=== PATIENT | female | born 1970 | race Caucasian/White ===

== ENCOUNTER 2019-09-02 07:54 | Outpatient (CLI) | payer BC, SELFPAY ==
--- NOTE | ~2019-09-02 | MR_ITS ---
EXAMINATION: MR ankle LT wo con DATE: 09/02/2019 09:25 INDICATION: Chronic left heel pain TECHNIQUE: Magnetic resonance imaging (MRI) of the left ankle was performed without intravenous contr ast. Sequences included sagittal, coronal, and axial proton-density weighted fast spin echo without a nd with fat saturation. COMPARISON: None. FINDINGS: Medial ankle ligaments: Deep and superficial deltoid ligaments as well as the spring ligament are normal. Lateral ankle ligaments: The anterior and posterior inferior tibiofibular ligaments are normal. The anterior talofibular, calc aneofibular and posterior talofibular ligaments are normal. Tendons: Achilles tendon is normal. The peroneus longus and brevis tendons are normal. The tibialis anterior a nd extensor hallucis longus and extensor digitorum longus tendons are normal. The tibialis posterior, flexor digitorum longus and flexor hallucis longus tendons are normal. Plantar fascia: Tiny plantar calcaneal spur. Mild thickening with minimal increased signal at the proximal aspect of the central component of the plantar aponeurosis. No significant associated bone or surrounding soft tissue edema to suggest acute plantar fasciitis. There is a transverse band of scarring along the ski n surface at the medial plantar aspect of the heel superficial to the proximal aspect of the plantar aponeurosis consistent with history of prior surgery. The plantar aponeurosis appears normal. Bones/other: Bone alignment is normal with normal marrow signal throughout. No fracture, reactive edema or patholo gic marrow replacing process. Joint spaces are normal. No erosions. Intrinsic musculature of the foot is unremarkable. Lisfranc ligament complex is normal. Sinus Tarsi and tarsal tunnel are unremarkable . Fluid: Physiologic amount of fluid in the joint spaces. No tenosynovitis or other abnormal fluid collections . IMPRESSION: 1. Mild chronic enthesopathy at the calcaneal origin of the plantar aponeurosis with adjacent postope rative changes. Correlate with surgical history. Reviewed, dictated and finalized at location A. IMPRESSION: 1. Mild chronic enthesopathy at the calcaneal origin of the plantar aponeurosis with adjacent postoperative changes. Correlate with surgical history.
--- NOTE | ~2019-09-02 | MR_ITS ---
EXAMINATION: MR ankle RT wo con DATE: 09/02/2019 09:25 INDICATION: Chronic inferior right heel pain TECHNIQUE: Magnetic resonance imaging (MRI) of the right ankle and hindfoot was performed without int ravenous contrast. Sequences included sagittal, coronal, and axial proton-density weighted fast spin echo without and with fat saturation. COMPARISON: None. FINDINGS: Medial ankle ligaments: Deep and superficial deltoid ligaments as well as the spring ligament are normal. Lateral ankle ligaments: The anterior and posterior inferior tibiofibular ligaments are normal. The anterior talofibular, calc aneofibular and posterior talofibular ligaments are normal. Tendons: Achilles tendon is normal. The peroneus longus and brevis tendons are normal. The tibialis anterior a nd extensor hallucis longus and extensor digitorum longus tendons are normal. The tibialis posterior, flexor digitorum longus and flexor hallucis longus tendons are normal. Plantar fascia: Small plantar calcaneal spur. There is mild thickening and increased signal at the proximal aspect of the central component of the plantar aponeurosis. There is minimal associated marrow and soft tissue edema consistent with mild plantar fasciitis. Bones/other: Bone alignment is normal. Normal marrow signal with no fracture, reactive edema or pathologic marrow replacing process. Joint spaces are normal. Lisfranc ligament is normal. Sinus Tarsi and tarsal tunne l are unremarkable. Fluid: Physiologic amount fluid in the joint space. No tenosynovitis or other abnormal fluid collections. IMPRESSION: 1. Mild acute on chronic plantar fasciitis. Reviewed, dictated and finalized at location A.
== END 2019-09-02 07:55 | disposition home or self-care (01) ==
PROVIDERS: PCP Emergency Medicine; Visit Provider Podiatrist Foot & Ankle Surgery
DX: M79.671 Pain in right foot (principal); M79.672 Pain in left foot; M72.2 Plantar fascial fibromatosis
CPT/HCPCS: 73721

== ENCOUNTER 2021-01-12 01:14 | Day surgery (SDC) | payer BC, SELFPAY ==
[2020-12-25 14:15] VITALS: BMI 29.2
[2021-01-12 09:38] VITALS: BP 118/61; PULSE 92; RESP 16; TEMP 35.7; O2SAT 99; BMI 31.4
[2021-01-12] MEDS: LACTATED RINGERS 1,000 ML 150 ML IV CONT (09:55)
--- NOTE | 2021-01-12 09:55 | P.PNAN_ITS ---
Anes - Initial Pre Proc Eval Procedure: Operation Date: 01/12/21 10:30 Proposed Procedures p Screening Colonoscopy - Quentin Ontiveros MD Date/Time: 01/12/21 09:55 Surgeon: Quentin Ontiveros MD Pre Op Diagnosis: hx of colon polyps Patient Data Age: 50 Gender: F Height: 1.6 m Weight: 80.5 kg Last Vital Signs Temp 96.2 F L 01/12/21 09:38 Pulse 92 01/12/21 09:38 Resp 16 01/12/21 09:38 BP 118/61 01/12/21 09:38 Pulse Ox 99 01/12/21 09:38 Allergies Allergy/AdvReac Type Severity Reaction Status Date / Time cefdinir Allergy Unknown Unknown Verified 01/12/21 09:33 clindamycin Allergy Unknown Unknown Verified 01/12/21 09:33 nitrofurantoin Allergy Unknown DIARRHEA Verified 01/12/21 09:33 egg AdvReac Severe SEVERE GI Verified 01/12/21 09:33 UPSET N/V/D steroids AdvReac Uncoded 01/12/21 09:33 Home Medications Medication Instructions Recorded Confirmed Type No Home Medications 12/25/20 01/12/21 History Patient hx anesthesia problems: none Family hx anesthesia problems: none Results Review: All pre-operative results and documents have been reviewed as part of the pre-operative evaluation. [facility] Family History Family History (Updated 11/18/13 @ 07:13 by DOCTOR UNKNOWN) Sibling Hypertension Father Carcinoma of colon Other Diabetes mellitus Family history of cardiovascular disease Social History Social History Smoking packs per day: 0.75 Smoking cigarettes per day: 15.0 Years smoked: 20 Smoking pack-years: 15.00 Smoking status: Current every day smoker Tobacco type: cigarettes and e-cigarettes/vaping Additional smoking assessment comments: quit cigarettes 2014; vapes daily Alcohol intake: current Alcohol use details: occasional Substance use: never Substance use type: does not use Living arrangements: with family Additional living arrangements comments: lives with spouse Spiritual care concerns: No Anes - Eval Final PreProcedure Day of Procedure 01/12/21 09:55 Patient weight: obese Heart: regular rate and rhythm Lungs: clear to auscultation Airway: Mallampati scale class II Neurological: alert and oriented Last oral intake: >/= 8 hours ASA classification: II Emergent: no Anesthetic plan: proceed Anesthesia type and monitoring: general GIVS and standard monitoring Results Review: All pre-operative results and documents have been reviewed as part of the pre-operative evaluation. Informed Consent: The patient's anesthetic plan and its attendant risks and benefits were discussed with the patient/family/POA. Questions were solicited and answers provided to the satisfaction of the patient/family/POA.
--- NOTE | 2021-01-12 10:01 | PM.HPGS ---
History of Present Illness History of Present Illness Consent: Risks, benefits, and alternatives have been discussed and questions answered. Patient agrees to proceed with procedure. Chief complaint: hx of colon polyps Narrative: Cece Morel is a 50 year old female with both parents had colon cancer, she has been getting colonoscopies every 5 years but last time about 6 years ago. Review of Systems Constitutional: Constitutional: Denies headache(s) and Denies weakness Eyes: Eyes: Denies blurry vision ENT: Reports Normal hearing present, Denies headache(s) and Denies neck pain Cardiovascular: Cardiovascular: Denies chest pain and Denies dyspnea Respiratory: Respiratory: Denies dyspnea Gastrointestinal: Gastrointestinal: Reports no additional gastrointestinal complaints Genitourinary: Genitourinary: Denies dysuria Musculoskeletal: Musculoskeletal: Denies neck pain Integumentary/Breasts: Skin/Breast: Denies dry skin Neurologic: Reports Normal hearing present, Denies headache(s) and Denies weakness Psychiatric: Psychiatric: Denies anxiety Endocrine: Endocrine: Denies change in body appearance Hematologic/Lymphatic: Hematologic/Lymphatic: Denies easy bleeding Allergic/Immunologic: Allergic/Immunologic: Denies urticaria PMFSH Past Medical History Medical History (Updated 01/12/21 @ 10:02 by Quentin Ontiveros MD) Family history of colon cancer Family History Family History (Updated 11/18/13 @ 07:13 by DOCTOR UNKNOWN) Sibling Hypertension Father Carcinoma of colon Other Diabetes mellitus Family history of cardiovascular disease Social History Social History Smoking packs per day: 0.75 Smoking cigarettes per day: 15.0 Years smoked: 20 Smoking pack-years: 15.00 Smoking status: Current every day smoker Tobacco type: cigarettes and e-cigarettes/vaping Additional smoking assessment comments: quit cigarettes 2014; vapes daily Alcohol intake: current Alcohol use details: occasional Substance use: never Substance use type: does not use Living arrangements: with family Additional living arrangements comments: lives with spouse Spiritual care concerns: No Meds Home Medications and Allergies Home Medications Medication Instructions Recorded Confirmed Type No Home Medications 12/25/20 01/12/21 History Allergies Allergy/AdvReac Type Severity Reaction Status Date / Time cefdinir Allergy Unknown Unknown Verified 01/12/21 09:33 clindamycin Allergy Unknown Unknown Verified 01/12/21 09:33 nitrofurantoin Allergy Unknown DIARRHEA Verified 01/12/21 09:33 egg AdvReac Severe SEVERE GI Verified 01/12/21 09:33 UPSET N/V/D steroids AdvReac Uncoded 01/12/21 09:33 Vital Signs Vital Signs - 24 hr 01/12/21 09:38 Temperature 96.2 F L Pulse Rate 92 Respiratory Rate 16 Blood Pressure 118/61 Pulse Oximetry 99 Exam Const: General: comfortable and no acute distress HENMT: General nose exam: Normal nares present Eyes: General: appearance normal, both eyes and all related structures Neck: Neck: no JVD Resp: Auscultation: clear to auscultation bilaterally Cardio: Rate: regular rate Rhythm: regular rhythm GI: Inspection: non-distended GI Palp: Yes Soft to palpation Skin: General skin exam: normal color Neuro: General: gait normal Speech: normal speech Extrem: General: normal to inspection Psych: Mental Status: mental status grossly normal Assessment and Plan Assessment and plan (1) Family history of colon cancer: Code(s): Z80.0 - Family history of malignant neoplasm of digestive organs Status: Acute Assessment and Plan: colonoscopy
[2021-01-12 10:25] VITALS: BP 94/48; PULSE 87; RESP 16; O2SAT 98
[2021-01-12 10:35] VITALS: BP 92/48; PULSE 80; RESP 16; O2SAT 98
[2021-01-12 10:45] VITALS: BP 95/50; PULSE 77; RESP 16; O2SAT 98
== END 2021-01-12 10:53 | disposition home or self-care (01) ==
PROVIDERS: PCP Emergency Medicine; Visit Provider Internal Medicine Gastroenterology
PROC: 0DJD8ZZ Inspection of Lower Intestinal Tract, Via Natural or Artificial Opening Endoscopic (ICD-10-PCS; CPT 45378; principal; 2021-01-12 10:30)
DX: Z12.11 Encounter for screening for malignant neoplasm of colon (principal); Z80.0 Family history of malignant neoplasm of digestive organs; K63.5 Polyp of colon; K64.8 Other hemorrhoids; D12.2 Benign neoplasm of ascending colon; F17.290 Nicotine dependence, other tobacco product, uncomplicated; E66.9 Obesity, unspecified; Z68.31 Body mass index [BMI] 31.0-31.9, adult
CPT/HCPCS: 45380; 88305; J2704; J7120

== ENCOUNTER → 2021-02-08 14:17 | Outpatient (CLI) | payer BC, SELFPAY ==
--- NOTE | ~2021-02-08 | XR_ITS ---
EXAMINATION: XR lumbar spine min 4V DATE: 02/08/2021 15:33 INDICATION: Lumbar spondylosis. TECHNIQUE: 5 views of lumbar spine were obtained. COMPARISON: None. FINDINGS: Bone alignment is normal. Vertebral body heights and intervertebral disc heights are normal . There are endplate osteophytes at L3-L4 and L4-L5. There is facet joint osteoarthritis in lower lum bar spine, severe on the right at L5-S1. IMPRESSION: 1. Mild lumbar spondylosis. Reviewed, dictated and finalized at location A. SOFTWARE TEST ENGINEER IMPRESSION: 1. Mild lumbar spondylosis.
== END ==
DX: M47.816 Spondylosis without myelopathy or radiculopathy, lumbar region (principal); M48.061 Spinal stenosis, lumbar region without neurogenic claudication; M53.3 Sacrococcygeal disorders, not elsewhere classified
CPT/HCPCS: 72110

== ENCOUNTER 2021-09-11 10:43 | Outpatient (CLI) | payer BC, SELFPAY ==
[2021-09-11 11:12] LABS: Basophils Absolute Auto 0.1 K/mm3 (0.0-0.1); Basophils Percent Auto 0.6 % (0.2-1.2); Eosinophils Absolute Auto 0.2 K/mm3 (0-0.3); Eosinophils Percent Auto 2.2 % (0-4.4); Hematocrit 42.9 % (37.0-47.0); Hemoglobin 13.9 g/dL (12.0-15.0); Immature Granulocyte Absolute 0.03 K/mm3 (0.00-0.031); Immature Granulocyte Percent A 0.4 % (0-0.5); Lymphocytes Absolute Auto 1.97 K/mm3 (0.9-3.2); Lymphocytes Percent Auto 24.3 % (18.3-44.2); Mean Corpuscular HGB Conc 32.4 g/dl (32-36); Mean Corpuscular Hemoglobin 29.8 pg (26-34); Mean Corpuscular Volume 92.1 fl (80-100); Mean Platelet Volume 10.2 fl (7.4-10.4); Monocytes Absolute Auto 0.6 K/mm3 (0.1-0.6); Monocytes Percent Auto 6.9 % (2.6-8.5); Neutrophils Absolute Auto 5.3 K/mm3 (1.3-6.7); Neutrophils Percent Auto 65.6 % (45.5-73.1); Platelet Count Result 280 k/mm3 (150-375); Red Blood Count 4.66 M/mm3 (4.2-5.4); Red Cell Distribution Width 12.2 % (11.5-14.5); White Blood Count 8.1 K/mm3 (4.5-10.0)
[2021-09-11 11:24] LABS: Rheumatoid Factor < 8.6 IU/ML (<12)
[2021-09-11 11:31] LABS: CRP 0.8 mg/dL (<1.0)
[2021-09-11 12:46] LABS: Erythrocyte Sedimentation Rate 17 mm/hr (0-20)
[2021-09-16 12:10] LABS: HLA B27 Negative (Negative)
== END 2021-09-11 10:44 | disposition home or self-care (01) ==
LOC: ANHLAB 10:47
PROVIDERS: PCP Emergency Medicine; Visit Provider Podiatrist Foot & Ankle Surgery
DX: M06.9 Rheumatoid arthritis, unspecified (principal); M45.9 Ankylosing spondylitis of unspecified sites in spine; M10.9 Gout, unspecified
CPT/HCPCS: 36415; 84550; 85025; 85652; 86038; 86140; 86430; 86812

== ENCOUNTER → 2022-07-15 13:07 | Outpatient (CLI) | payer BC, SELFPAY ==
--- NOTE | ~2022-07-15 | DEXA_ITS ---
Bone Density Report Name: JENNY BIRMINGHAM Age: 52 Sex: Female Ethnicity: White Date of : 1970 Indication: postmenopausal; screening for osteoporosis; Referring Provider: PAWAN JACKSON Study: Bone densitometry was performed. Exam Date: July 15, 2022 Accession number: [id number] Bone Density: Region BMD T-score Z-score Classification AP Spine (L1-L4) 0.858 -1.7 -0.8 Osteopenia Femoral Neck (Left) 0.803 -0.4 0.5 Normal Total Hip (Left) 0.923 -0.2 0.4 Normal Femoral Neck (Right) 0.706 -1.3 -0.3 Osteopenia Total Hip (Right) 0.861 -0.7 -0.1 Normal Total Hip Mean 0.892 -0.5 0.2 Normal World Health Organization criteria for BMD impression classify patients as: Normal (T-score at or above -1.0), Osteopenia (T-score between -1.0 and -2.5), or Osteoporosis (T-score at or below -2.5). 10-year Fracture Risk(1): Major Osteoporotic Fracture 5.4% Hip Fracture 0.3% Reported Risk Factors: [place] (), Neck BMD=0.706, BMI=31.1 (1) FRAX(R) Version 3.08. Fracture probability calculated for an untreated patient. Fracture probability may be lower if the patient has received treatment. Clinical Information Provided by Patient: Has used the following medications: Calcium Patient maximum height was 63 Menopause Age: 42 Does not regularly consume dairy products Drinks caffeinated beverages Onset of menses at age 12 Number of children 2 Impression: The patient has low bone mass, based on the Total Spine T-score. The patient has an estimated ten-year risk of hip fracture of 0.3% and an estimated ten-year risk of major fracture of 5.4%, based on the WHO FRAX algorithm. Discussion: BONE DENSITY IS LOW AT ONE OR MORE SKELETAL SITES. This patient's lowest T-score is low at one or more skeletal sites. It meets the World Health Organization's (WHO) criteria for ?low bone mass? (T-score between -1.0 and -2.5). The patient's 10-year risk of fracture as calculated by FRAX is less than the threshold where pharmacological therapy is recommended by the National Osteoporosis Foundation (NOF). However, all treatment decisions require clinical judgment and consideration of individual patient factors, including patient preferences, comorbidities, previous drug use, risk factors not captured in the FRAX model (e.g., frailty, falls, vitamin D deficiency, increased bone turnover, interval significant decline in bone density) and possible under or overestimation of fracture risk by FRAX. The patient should follow a healthful lifestyle (good nutrition with adequate calcium and vitamin D, and appropriate weight-bearing exercise). Follow-Up: Consider repeating this study in 2 to 3 years to reassess this patient's status, or sooner if there is some new clinical indication. Reported by: ISAK on 07/15/2022 1:33:00 PM.
--- NOTE | ~2022-07-15 | MM_ITS ---
EXAMINATION: MM screening sylvie BI [facility] HISTORY: Screening mammogram TECHNIQUE: Craniocaudal and mediolateral oblique 3-D tomosynthesis images were obtained and synthetic 2-D images were generated. CAD analysis was submitted and interpreted. COMPARISON: 11/18/2014 bilateral screening mammogram BREAST PARENCHYMAL COMPOSITION: There are scattered areas of fibroglandular density. FINDINGS: There is no evidence of suspicious mass, calcification, or architectural distortion to sugg est malignancy in either breast. There has been no suspicious interval change. IMPRESSION: 1. No mammographic evidence of malignancy. 2. Recommend routine screening mammography in one year. BI-RADS Category 1: Negative Reviewed, dictated and finalized at location A.
== END ==
PROVIDERS: PCP Emergency Medicine; Visit Provider Emergency Medicine
DX: Z12.31 Encounter for screening mammogram for malignant neoplasm of breast (principal); Z78.0 Asymptomatic menopausal state; M85.89 Other specified disorders of bone density and structure, multiple sites
CPT/HCPCS: 77063; 77067; 77080

== ENCOUNTER 2022-08-02 17:34 | Emergency (ER) | payer BC, SELFPAY ==
[2022-08-02 17:37] VITALS: BP 140/81; PULSE 118; RESP 19; TEMP 37.1; O2SAT 95
[2022-08-02 18:22] LABS: Basophils Absolute Auto 0.1 K/mm3 (0.0-0.1); Basophils Percent Auto 0.4 % (0.2-1.2); Eosinophils Percent Auto 0.1 % (0-4.4); Hematocrit 42.7 % (37.0-47.0); Hemoglobin 14.5 g/dL (12.0-15.0); Immature Granulocyte Absolute 0.03 K/mm3 (0.00-0.031); Immature Granulocyte Percent A 0.2 % (0-0.5); Lymphocytes Absolute Auto 2.79 K/mm3 (0.9-3.2); Lymphocytes Percent Auto 20.4 % (18.3-44.2); Mean Corpuscular Volume 88.2 fl (80-100); Mean Platelet Volume 10.6 fl (7.4-10.4); Monocytes Percent Auto 7.4 % (2.6-8.5); Neutrophils Absolute Auto 9.8 K/mm3 (1.3-6.7); Neutrophils Percent Auto 71.5 % (45.5-73.1); Platelet Count Result 360 k/mm3 (150-375); Red Blood Count 4.84 M/mm3 (4.2-5.4); Red Cell Distribution Width 12.1 % (11.5-14.5); White Blood Count 13.7 K/mm3 (4.5-10.0)
[2022-08-02 18:39] LABS: Alanine Aminotransferase 30 U/L (6-35); Albumin Level 4.8 g/dL (3.5-5.1); Alkaline Phosphatase 98 U/L (38-126); Anion Gap 13 mmol/L (8-16); Aspartate Amino Transferase 33 U/L (14-36); Bilirubin,Total 0.4 mg/dL (0.2-1.3); Blood Urea Nitrogen 7 mg/dL (7-17); Calcium 9.3 mg/dL (8.4-10.2); Carbon Dioxide 24 mmol/L (22-30); Chloride 102 mmol/L (98-107); Estimated CRCL calculation 89 ml/min; Estimated Glomerular Filt Rate > 60; Ethanol < 10 mg/dL (<10); Glucose 117 mg/dL (65-110); Potassium 3.1 mmol/L (3.4-5.0); Sodium 139 mmol/L (137-145)
[2022-08-02 18:41] LABS: Amphetamine Screen Urine Negative (Negative); Barbiturate Screen Urine Negative (Negative); Benzodiazepines Screen Urine Negative (Negative); Cannabinoid Screen Urine Negative (Negative); Cocaine Screen Urine Negative (Negative); Methadone Screen Urine Negative (Negative); Opiate Screen Urine Negative (Negative); Phencyclidine Screen Urine Negative (Negative)
--- NOTE | 2022-08-02 18:41 | ED.PSYCH ---
HPI - Psych General Chief Complaint: Psychiatric Symptoms Stated Complaint: decreased po/depression/si Time Seen by Provider: 08/02/22 17:51 History of Present Illness HPI Narrative: 52-year-old female presents to the emergency room for evaluation of gradual onset of depression. Patient states that she has lost her appetite recently and has been sleeping a lot more. Patient also states she is having difficulty with concentrating, states her mind is wandering. Reports increased stress at work, at home, and new grandchild. Patient states that she is feeling suicidal but does not have a plan. She did leave a note for children, and sent a text message to her her children endorsing her desire to hurt herself. Patient states I feel like I am drowning . Related Data Home Medications Medication Instructions Recorded Confirmed No Home Medications 12/25/20 01/12/21 Allergies Allergy/AdvReac Type Severity Reaction Status Date / Time cefdinir Allergy Unknown Unknown Verified 01/12/21 09:33 clindamycin Allergy Unknown Unknown Verified 01/12/21 09:33 nitrofurantoin Allergy Unknown DIARRHEA Verified 01/12/21 09:33 egg AdvReac Severe SEVERE GI Verified 01/12/21 09:33 UPSET N/V/D steroids AdvReac Uncoded 01/12/21 09:33 Review of Systems Review of Systems: CONSTITUTIONAL: Denies fever, chills, or sweats. EYES: Denies visual changes, redness, or discharge. ENT: Denies rhinorrhea, congestion, sore throat, or otalgia. CARDIOVASCULAR: Denies chest pain, palpitations, or edema. RESPIRATORY: Denies cough or dyspnea. GASTROINTESTINAL: Denies abdominal pain, nausea, vomiting, or diarrhea. GENITOURINARY: Denies dysuria or hematuria. SKIN: Denies rash or itching. MUSCULOSKELETAL: Denies back pain, joint pain, or myalgia. NEUROLOGIC: Denies headache, numbness, dizziness, or weakness. PSYCHIATRIC: Reports anxiety and depression. [facility] Past Medical History Medical History Family history of colon cancer Family History Family History Sibling Hypertension Father Carcinoma of colon Other Diabetes mellitus Family history of cardiovascular disease Social History Social History Smoking packs per day: 0.75 Smoking cigarettes per day: 15.0 Years smoked: 20 Smoking pack-years: 15.00 Smoking status: Current every day smoker Tobacco type: cigarettes and e-cigarettes/vaping Additional smoking assessment comments: quit cigarettes 2014; vapes daily Alcohol intake: current Alcohol use details: occasional Substance use: never Substance use type: does not use Living arrangements: with family Additional living arrangements comments: lives with spouse Spiritual care concerns: No Exam Narrative: GENERAL: Well-appearing, well-nourished, no physical limitations, and in no acute distress. HEAD: Normocephalic, atraumatic. EYES: Conjunctivae normal, PERRLA and EOMI. CHEST: Clear to auscultation. No respiratory distress. No wheezes rales or rhonchi. HEART: Regular rate and rhythm. No murmur heard. Normal peripheral pulses. ABDOMEN: Soft, nontender, nondistended, normal active bowel sounds. BACK: No CVA tenderness; No cervical/thoracic/lumbar tenderness, step-offs, bony abnormality; FROM EXTREMITIES: Normal range of motion. No edema. No clubbing or cyanosis SKIN: Warm, dry, no rash. No noted wounds NEURO: No focal deficits. Alert and oriented x3. MAEW. CN's II-XI intact bilaterally, normal gait PSYCH: Cooperative. Tearful. Course Course Emergency Course: 1899: Patient medically cleared. Crisis called. Vital Signs Vital signs: Vital Signs Temperature 37.1 C 08/02/22 17:37 Pulse Rate 118 H 08/02/22 17:37 Respiratory Rate 19 08/02/22 17:37 Blood Pressure 140/81 08/02/22 17:37 Pulse Oximetry 95 08/02/22 17:37 Oxygen
[2022-08-02 18:47] LABS: Appearance Urine Clear (Clear); Bacteria Urine None Seen /hpf; Bilirubin Urine Negative (Negative); Blood Urine Trace (Negative); Color Urine Yellow (Yellow); Glucose Urine UA Negative (Negative); Ketones Urine Negative (Negative); Leukocyte Esterase Ur Trace LEU/UL (Negative); Need Manual Microscopic Reviewed; Nitrate Urine Negative (Negative); Non Pathogenic Casts 0-2; Protein Urine Negative (Negative); RBC Urine 0-2 /hpf (0-2); Specific Grav Ur 1.003 (1.001-1.035); Squamous Epithelial Cell Urine None seen /hpf (Few); Urobilinogen Urine 0.2 mg/dL (<2.0); WBC Urine 0-5 /hpf
[2022-08-02 18:51] LABS: Add Urine Microscopic? YES
--- NOTE | 2022-08-02 18:56 | PC.NURSE ---
call placed to crisis to evaluate patient. will be in to evaluate patient
[2022-08-02 19:07] LABS: Thyroid Stimulating Hormone 0.158 uIU/mL (0.465-4.680)
[2022-08-02 19:33] LABS: Influenza A QL RT-PCR Negative (Negative); Influenza B QL RT-PCR Negative (Negative); SARS-CoV-2 RNA PCR Negative (Negative)
[2022-08-02 21:52] VITALS: BP 141/82; PULSE 86; RESP 16; O2SAT 100
== END 2022-08-02 21:53 | disposition home or self-care (01) ==
PROVIDERS: Emergency Provider Nurse Practitioner Family; PCP Emergency Medicine
DX: F32.A Depression, unspecified (principal); Z20.822 Contact with and (suspected) exposure to COVID-19; F17.290 Nicotine dependence, other tobacco product, uncomplicated
CPT/HCPCS: 36415; 80053; 80307; 81001; 81025; 84443; 85025; 87636; 99284

== ENCOUNTER 2023-08-20 11:58 | Outpatient (CLI) | payer BC, SELFPAY ==
--- NOTE | ~2023-08-20 | XR_ITS ---
Left Knee Technique: AP and lateral views were obtained. Clinical History: Pain Findings: No fracture or dislocation is seen. Osseous alignment is anatomic. Joint spaces are preserv ed without degenerative or erosive change. Soft tissues are unremarkable. No joint effusion is seen. Impression: Unremarkable left knee radiographs. Reviewed, dictated and finalized at location . Impression: Unremarkable left knee radiographs.
== END 2023-08-20 11:59 ==
PROVIDERS: PCP Emergency Medicine; Visit Provider Emergency Medicine
DX: M25.562 Pain in left knee (principal)
CPT/HCPCS: 73560